=== PATIENT | male | born 1980 ===

== ENCOUNTER 2018-01-11 11:42 | Emergency (ER) | payer SELFPAY ==
[~2018-01-11] VITALS: Ht 182.9 cm; Wt 81.7 kg
[~2018-01-11 11:42] MED LIST: ALPR.5 PO; ALPR1 PO; AMOCLA500 PO; Ativan1 MG PO; CEPH500 PO; CHLO25 PO; CYCL10 PO; DEPLIN-ALGAL O1 EAC1 PO; DESV50 PO; FAMO20 PO; HYDACE5 PO; HYDMOR2 PO; LITH300C; LITH300C PO; LORA1 PO; MED FOR ADHD; MULVITMIND PO; MUPI2TO TOP; NAPR550 PO; ONDA4ODT MM; OXYACE5T PO; OXYACE7.5T PO; OXYC5 PO; Pepcid40 MG PO; RITALIN; RXONDA4ODT MM; RXOXYACE PO; SUCR1 PO; SULTRIDS PO; VIT B COMPLEX PO; ZOLP5 PO; Zofran8 MG PO
[2018-01-11 12:07] LABS: BASOPHILS ABSOLUTE AUTO 0.04 K/mm3 (0.00-0.23); BASOPHILS PERCENT AUTO 0 % (0-2); EOSINOPHILS PERCENT AUTO 0 % (0-6); Hemoglobin 14.9 g/dL (13.5-17.5); IMMATURE GRAN ABSOLUTE AUTO 0.04 K/mm3 (0.00-0.10); IMMATURE GRAN PERCENT AUTO 0 % (0-1); LYMPHOCYTES ABSOLUTE AUTO 0.99 K/mm3 (0.84-5.20); LYMPHOCYTES PERCENT AUTO 9 % (21-46); MONOCYTES ABSOLUTE AUTO 0.77 K/mm3 (0.16-1.47); MONOCYTES PERCENT AUTO 7 % (4-13); Mean Corpuscular HGB 30.1 pg (26.0-34.0); Mean Corpuscular HGB Conc 34.7 g/dL (31.5-36.5); Mean Corpuscular Volume 87 fL (80-100); Mean Platelet Volume 10.7 fL (9.1-12.4); NEUTROPHILS ABSOLUTE AUTO 9.82 K/mm3 (1.96-9.15); NEUTROPHILS PERCENT AUTO 84 % (41-73); Platelet Count 298 K/mm3 (150-400); RDW Coefficient Variation 12.6 % (11.7-14.2); RDW Standard Deviation 39.8 fL (35.1-46.3); Red Blood Cell Count 4.95 M/mm3 (4.30-5.90); White Blood Cell Count 11.66 K/mm3 (4.00-11.30)
[2018-01-11 12:24] LABS: Alanine Aminotransfer (ALT/SGP 54 U/L (12-78); Albumin, Blood 4.6 g/dL (3.4-5.0); Albumin/Globulin Ratio 1.4 (0.8-1.8); Alk Phos 80 U/L (50-136); Anion Gap 9 mmol/L (6-16); Aspartate Aminotrans (AST/SGOT 42 U/L (12-37); Bilirubin, Total 0.8 mg/dL (0.1-1.0); Blood Urea Nitrogen 20 mg/dL (8-24); Bun/Creatinine Ratio 19.8 (12.0-20.0); CO2, Blood 25 mmol/L (21-32); Calcium, Blood 9.3 mg/dL (8.5-10.1); Chloride, Blood 107 mmol/L (98-108); Creatinine, Blood 1.01 mg/dL (0.60-1.20); Globulin, Blood 3.3 g/dL (2.2-4.0); Glomerular Filtration Rate >60 (60-); Glucose, Blood 135 mg/dL (70-99); Potassium, Blood 3.5 mmol/L (3.5-5.5); Sodium, Blood 141 mmol/L (136-145); Total Protein, Blood 7.9 g/dL (6.4-8.2)
[2018-01-11 13:59] LABS: U Amphetamine Screen Not Detected; U Barbituate Screen Not Detected; U Benzodiazapine Screen Not Detected; U Buprenorphine Screen Not Detected; U Cannabinoids Screen DETECTED; U Cocaine Screen Not Detected; U Methadone Screen Not Detected; U Methamphetamine Screen Not Detected; U Opiates Screen Not Detected; U Oxycodone Screen Not Detected; U Phencyclidine Screen Not Detected; U Propoxyphene Screen Not Detected
[2018-01-11 14:43] LABS: Thyroid Stimulating Hormone 0.429 uIU/mL (0.360-4.800)
== END 2018-01-11 14:43 | disposition home or self-care (01) ==
LOC: ER 11:42
PROVIDERS: Emergency Medicine
DX: R63.4 Abnormal weight loss (principal); E27.9 Disorder of adrenal gland, unspecified; R73.9 Hyperglycemia, unspecified; F17.210 Nicotine dependence, cigarettes, uncomplicated
CPT/HCPCS: 36415; 71046; 74177; 80053; 83690; 84443; 85025; 85730; J7120; Q9967

== ENCOUNTER 2018-01-31 00:43 | Day surgery (SDC) | payer SELFPAY | END 2018-01-31 09:15 | disposition home or self-care (01) | LOC: ATC 00:43 | DX: E27.9 Disorder of adrenal gland, unspecified (principal); R63.4 Abnormal weight loss; R10.9 Unspecified abdominal pain; R53.81 Other malaise; F17.210 Nicotine dependence, cigarettes, uncomplicated | CPT/HCPCS: 36415; 80400; 82533; 96372; J0834 ==

== ENCOUNTER → 2020-01-01 | Outpatient (CLI) | payer SELFPAY ==
[2020-01-07 20:08] LABS: METANEPHRINE, UR 105 ug/L (Undefined)
== END | disposition home or self-care (01) ==
LOC: LAB SHORT 07:00 → LAB 07:00
PROVIDERS: Internal Medicine Endocrinology, Diabetes & Metabolism
DX: E27.9 Disorder of adrenal gland, unspecified (principal)
CPT/HCPCS: 81050

== ENCOUNTER → 2023-08-29 | Outpatient (CLI) | payer SELFPAY ==
[2023-08-29 16:30] LABS: BASOPHILS ABSOLUTE AUTO 0.03 K/mm3 (0.00-0.23); BASOPHILS PERCENT AUTO 0 % (0-2); EOSINOPHILS ABSOLUTE AUTO 0.01 K/mm3 (0.00-0.68); EOSINOPHILS PERCENT AUTO 0 % (0-6); Hematocrit 42.6 % (37.0-53.0); Hemoglobin 14.7 g/dL (13.5-17.5); IMMATURE GRAN ABSOLUTE AUTO 0.02 K/mm3 (0.00-0.10); IMMATURE GRAN PERCENT AUTO 0 % (0-1); LYMPHOCYTES ABSOLUTE AUTO 1.16 K/mm3 (0.84-5.20); LYMPHOCYTES PERCENT AUTO 12 % (21-46); MONOCYTES ABSOLUTE AUTO 0.47 K/mm3 (0.16-1.47); MONOCYTES PERCENT AUTO 5 % (4-13); Mean Corpuscular HGB 31.3 pg (26.0-34.0); Mean Corpuscular HGB Conc 34.5 g/dL (31.5-36.5); Mean Corpuscular Volume 91 fL (80-100); Mean Platelet Volume 9.9 fL (9.1-12.4); NEUTROPHILS ABSOLUTE AUTO 8.11 K/mm3 (1.96-9.15); NEUTROPHILS PERCENT AUTO 83 % (41-73); Platelet Count 261 K/mm3 (150-400); RDW Coefficient Variation 13.2 % (11.7-14.2); RDW Standard Deviation 43.7 fL (35.1-46.3); Red Blood Cell Count 4.69 M/mm3 (4.30-5.90)
[2023-08-29 16:53] LABS: Albumin/Globulin Ratio 1.3 (0.8-1.8); Bilirubin, Total 0.5 mg/dL (0.1-1.0); Bun/Creatinine Ratio 9.2 (12.0-20.0); Calcium, Blood 9.1 mg/dL (8.5-10.1); Creatinine, Blood 1.09 mg/dL (0.60-1.20); Globulin, Blood 3.2 g/dL (2.2-4.0); Potassium, Blood 4.2 mmol/L (3.5-5.5); Thyroid Stimulating Hormone 0.298 uIU/mL (0.360-4.800); Total Protein, Blood 7.2 g/dL (6.4-8.2)
[2023-08-31 21:20] LABS: HOMOCYSTEINE,TOTAL 8 umol/L (0-15)
== END | disposition home or self-care (01) ==
LOC: LAB 16:24 → LAB SHORT 16:24
PROVIDERS: Physician Assistant
DX: R53.83 Other fatigue (principal); M62.81 Muscle weakness (generalized)
CPT/HCPCS: 80053; 82550; 83090; 83690; 84443; 85025; 85651; 86140

== ENCOUNTER → 2023-08-30 | Outpatient (CLI) | payer SELFPAY | LOC: LAB 16:32 → LAB SHORT 16:32 | DX: R89.1 Abnormal level of hormones in specimens from other organs, systems and tissues (principal) | CPT/HCPCS: 84439; 84481 ==